=== PATIENT | female | born 1990 | race Two or more races ===

== ENCOUNTER 2020-10-09 11:16 | Outpatient (CLI) | payer OTHER ==
[2020-10-09 12:18] LABS: MEAN CORPUSCULAR HEMOGLOBIN 31.4 pg (27.0-34.8); MEAN CORPUSCULAR HGB CONC 34.7 g/dL (32.4-35.8); MEAN PLATELET VOLUME 6.9 fL (7.4-10.4); PLATELET COUNT 414 x10^3/uL (130-400); RED BLOOD COUNT 4.89 x10^6/uL (3.82-5.3); RED CELL DISTRIBUTION WIDTH 12.8 % (9.6-15.2)
[2020-10-09 12:28] LABS: ANION GAP 6 mmol/L (5-15); CALCIUM 9.2 mg/dL (8.5-10.1); CHLORIDE 108 mmol/L (98-107); CREATININE 0.78 mg/dL (0.55-1.02)
[2020-10-09 12:37] LABS: MICROSCOPIC NOT IND
[2020-10-09] MEDS ORDERED: MULT-449 PO (12:47)
[2020-10-09] MEDS ORDERED: CHOL10003 PO (12:47)
[2020-10-09 13:02] LABS: BAND#(MANUAL) 0.09 x10^3/uL; BANDS%(MANUAL) 2 % (0-7); BASOS#(MANUAL) 0.05 x10^3/uL (0-0.1); BASOS% (MANUAL) 1 % (0-1); EOS#(MANUAL) 0.09 x10^3/uL (0.0-0.4); EOS% (MANUAL) 2 % (1-7); SEG#(MANUAL) 1.41 x10^3/uL (1.8-6.8); SEGS% (MANUAL) 30 % (42-75)
[2020-10-09 13:03] LABS: MONOS#(MANUAL) 0.33 x10^3/uL (0.3-2.7); MONOS% (MANUAL) 7 % (2-9)
[2020-10-09 13:04] LABS: <PLATELET ESTIMATE> INCREASED; <PLT MORPHOLOGY> NORMAL PLT MORPH; <RBC MORPHOLOGY> NORMAL; LYMPH#(MANUAL) 2.44 x10^3/uL (1-3.4); LYMPHS% (MANUAL) 52 % (22-44); REACTIVE LYMPHS # (MANUAL) 0.28 x10^3/uL (0-0); REACTIVE LYMPHS % (MANUAL) 6 % (0-0)
== END 2020-10-09 23:59 | disposition home or self-care (01) ==
LOC: STAR 11:16
PROVIDERS: ATTEND Obstetrics & Gynecology Gynecology
DX: Z01.818 Encounter for other preprocedural examination (principal); R10.2 Pelvic and perineal pain; N94.6 Dysmenorrhea, unspecified; N94.10 Unspecified dyspareunia; R31.9 Hematuria, unspecified; N97.9 Female infertility, unspecified; R19.00 Intra-abdominal and pelvic swelling, mass and lump, unspecified site
CPT/HCPCS: 36415; 80048; 81003; 84703; 85025

== ENCOUNTER 2020-10-16 05:43 | Day surgery (SDC) | payer OTHER ==
[~2020-10-16] VITALS: Ht 154.9 cm; Wt 60.8 kg
[~2020-10-16 05:43] MED LIST: CHOL10003 PO; MULT-449 PO
[2020-10-16 06:20] VITALS: BP 117/79
[2020-10-16] MEDS ORDERED: CHLORHEXIDINE 15 ML UDC PO ONE (06:30)
[2020-10-16] MEDS ORDERED: LACTATED RINGERS 1,000 ML IV SCH (06:30)
[2020-10-16 07:01] LABS: HCG UR SG 1.023 (1.003-1.030)
[2020-10-16] MEDS ORDERED: SILVER NITRATE STICK TP ONE (07:09)
[2020-10-16] MEDS ORDERED: FLUORESCEIN SODIUM 500 MG/5 ML ONE (07:10)
[2020-10-16] MEDS ORDERED: MIDAZOLAM 1 MG/ML, 2ML ONE (07:11)
[2020-10-16] MEDS ORDERED: FENTANYL PF 250 MCG/5ML ONE ×2 (07:11→08:56)
[2020-10-16] MEDS ORDERED: METHYLENE BLUE 50 MG/10 ML AMP ONE (07:44)
[2020-10-16] MEDS ORDERED: HYDROmorphone 1 MG/ML, 1ML INJ IVPush PRN (08:00)
[2020-10-16] MEDS ORDERED: LABETALOL 5MG/ML, 20ML IV PRN (08:00)
[2020-10-16] MEDS ORDERED: ONDANSETRON 2MG/ML, 2ML IVPush PRN (08:00)
[2020-10-16] MEDS ORDERED: METHOCARBAMOL 1,000 MG in DEXTROSE 5% 100 ML IV PRN (08:00)
[2020-10-16] MEDS ORDERED: PROMETHAZINE 25 MG/ML, 1ML IVPush PRN (08:00)
[2020-10-16] MEDS ORDERED: FENTANYL PF 100 MCG/2ML IV PRN (08:00)
[2020-10-16] MEDS ORDERED: HALOPERIDOL 5 MG/ML IV PRN (08:00)
[2020-10-16] MEDS ORDERED: LORazepam 2 MG/ML, 1ML IVPush PRN (08:00)
[2020-10-16] MEDS ORDERED: hydrALAzine 20 MG/ML, 1ML IV PRN (08:00)
[2020-10-16] MEDS ORDERED: HEPARIN 1,000 UNITS/ML, 10ML ONE (08:07)
[2020-10-16] MEDS ORDERED: PROPOFOL 50 ML ONE (09:06)
[2020-10-16] MEDS ORDERED: FENTANYL PF 100 MCG/2ML ONE (09:46)
[2020-10-16] MEDS ORDERED: ACETAMINOPHEN 650 MG/20.3 ML UDC ONE (09:46)
[2020-10-16] MEDS ORDERED: OXYcodone 5 MG/5 ML ORAL.SOL UDC ONE (09:47)
[2020-10-16] MEDS: ACETAMINOPHEN 325 MG TABLET PO PRN ×2 (09:55→10:19)
[2020-10-16] MEDS: OXYcodone 5 MG/5 ML ORAL.SOL UDC PO PRN ×2 (09:55→10:18)
== END 2020-10-16 12:20 | disposition home or self-care (01) ==
LOC: OUT 05:43
PROVIDERS: ATTEND Obstetrics & Gynecology Gynecology
DX: R10.2 Pelvic and perineal pain (principal); N94.5 Secondary dysmenorrhea; N80.0 Endometriosis of uterus; N70.02 Acute oophoritis; N83.202 Unspecified ovarian cyst, left side; N73.9 Female pelvic inflammatory disease, unspecified; N73.6 Female pelvic peritoneal adhesions (postinfective); N94.12 Deep dyspareunia; F17.210 Nicotine dependence, cigarettes, uncomplicated; Z20.822 Contact with and (suspected) exposure to COVID-19; Z82.49 Family history of ischemic heart disease and other diseases of the circulatory system
CPT/HCPCS: 58350; 58662; 81025; 88112; 88304; 88305; J1644; J2250; J2704; J3010; J7120; Q9968; U0003; U0005